=== PATIENT | female | born 1995 | race Caucasian/White ===

== ENCOUNTER 2018-01-20 14:36 | Emergency (ER) | payer MEDICAID ==
[2018-01-20] MEDS: IBUPROFEN 800 MG TAB PO (16:15)
[2018-01-20] MEDS: AUGMENTIN 875 MG TAB PO (16:15)
== END 2018-01-20 16:34 | disposition home or self-care (01) ==
LOC: M ED 14:36
DX: H65.01 Acute serous otitis media, right ear (principal); J06.9 Acute upper respiratory infection, unspecified; B34.9 Viral infection, unspecified; F17.210 Nicotine dependence, cigarettes, uncomplicated
CPT/HCPCS: 99283

== ENCOUNTER → 2022-02-27 | Outpatient (REF) | payer OTHER ==
[~2022-02-27] MED LIST: AUGM875T28 PO; VENTAER INH
== END ==
LOC: M LABWUC 16:29
PROVIDERS: ATTEND Student in an Organized Health Care Education/Training Program
DX: Z02.1 Encounter for pre-employment examination (principal)

== ENCOUNTER → 2022-03-11 | Outpatient (REF) | payer OTHER ==
[2022-03-12 05:07] LABS: MUMPS VIRUS IgG ANTIBODY <9.0 AU/mL (Immune >10.9); RUBEOLA IgG ANTIBODY 48.9 AU/mL (Immune >16.4)
== END ==
LOC: M LAB 10:13
PROVIDERS: ATTEND Student in an Organized Health Care Education/Training Program
DX: Z02.1 Encounter for pre-employment examination (principal)